=== PATIENT | female | born 1985 | race Caucasian/White ===

== ENCOUNTER 2020-07-01 12:21 | Emergency (ER) | payer OTHER ==
[~2020-07-01] VITALS: Ht 157.5 cm; Wt 107.0 kg
--- NOTE | 2020-07-01 13:04 | NUR ---
BIBS FROM HOME TO ER BED 6. AAOX4. NOT IN RESP DISTRESS, BREATHING KYLE AND UNLABORED. AMBULATORY. CAME IN FOR DIFFICULTY BREATHING. PT REPORTS THAT SHE IS HAVING PAIN ON THE LATERAL AND MID CHEST PAIN PRESSURE IN NATURE AGGREVATED BY DEEP BREATHING AND MOVEMENT. PT REPROTS THAT SHE HAD COVID BACK IN MARCH. NO TESTING DONE SINCE SHE GOT BETTER FROM COVID. PT IS SATURATING WELL ON RA @ 100%. MD WAS AT THE BEDSIDE FOR EVAL. ORDERS RECEIVED, NOTED AND CARRIED OUT. IV LINE ESTABLISHED ON L AC 18G, BLOOD DRAWN AND GIVEN TO PHLEB AT BEDSIDE. PT ON MONITOR
[2020-07-01 13:13] LABS: BASOPHILS % (AUTO) 0.4 % (0.0-2.0); EOSINOPHILS % (AUTO) 1.4 % (0.0-6.0); HEMATOCRIT 40 % (33-45); HEMOGLOBIN 13.5 g/dL (11.5-14.8); LYMPHOCYTES # (AUTO) 1.8 /CMM (0.8-4.8); LYMPHOCYTES % (AUTO) 18.7 % (20.0-44.0); MEAN CORPUSCULAR HGB CONC 34 g/dl (31.0-36.0); MEAN CORPUSCULAR VOLUME 90 fL (82-100); MONOCYTES # (AUTO) 0.7 /CMM (0.1-1.30); MONOCYTES % (AUTO) 6.9 % (2.0-12.0); NEUTROPHILS # (AUTO) 6.9 /CMM (1.8-8.9); NEUTROPHILS % (AUTO) 72.6 % (43.0-81.0); PLATELET COUNT (AUTO) 309 /CMM (150-450); RED BLOOD CELL COUNT(AUTO) 4.46 MIL/uL (4.0-5.2); WHITE BLOOD COUNT (AUTO) 9.5 K/uL (4.3-11.0)
[2020-07-01 13:26] LABS: CALCIUM, SERUM 8.8 mg/dL (8.5-10.1); CARBON DIOXIDE 27 mmol/L (21-32); CHLORIDE 105 mmol/L (98-107); CREATININE 0.8 mg/dL (0.6-1.3); GLUCOSE 85 mg/dL (74-106); POTASSIUM 3.8 mmol/L (3.5-5.1); SODIUM SERUM 139 mmol/L (136-145); UREA NITROGEN, BLOOD 11 mg/dL (7-18)
[2020-07-01] MEDS ORDERED: IOHEXOL-350 100 ML VIAL IV ONE ×2 (13:39→14:27)
[2020-07-01] MEDS ORDERED: IV NS 0.9% 250 ML IV ONE ×2 (13:39→14:27)
--- NOTE | 2020-07-01 14:33 | NUR ---
URINE SENT TO LAB
--- NOTE | 2020-07-01 17:13 | NUR ---
Patient discharged to home in stable condition. Written and verbal after care instructions given. Patient verbalizes understanding of instruction.IV removed. Catheter intact and site benign. Pressure and 4x4 applied to site. No bleeding noted. Pt ambulatory with a steady gait
[2020-07-01 17:14] VITALS: BP 113/59
== END 2020-07-01 17:15 | disposition home or self-care (01) ==
LOC: ER 12:25
DX: R06.02 Shortness of breath (principal); R09.1 Pleurisy
CPT/HCPCS: 36415; 71045; 71275; 80048; 84484; 84703; 85025; 85378; 93005 ×2; 99285; J7050 ×2; Q9967 ×2